=== PATIENT | female | born 1995 | race Caucasian/White ===

== ENCOUNTER 2017-03-29 16:50 | Emergency (ER) | payer BC ==
[~2017-03-29 16:50] MED LIST: NO HOME MEDICATIONS
[2017-03-29] MEDS ORDERED: MONONESSA 35 MC1 TA1 PO (16:56)
[2017-03-29 19:47] VITALS: BP 131/76
== END 2017-03-29 19:33 | disposition home or self-care (01) ==
LOC: ED 16:50
DX: T78.3XXA Angioneurotic edema, initial encounter (principal)
CPT/HCPCS: J1100